=== PATIENT | male | born 1935 | race Caucasian/White ===

== ENCOUNTER 2021-12-21 14:27 | Emergency (ER) | payer MEDICARE ==
[2021-12-21] MEDS ORDERED: Diphtheria,Pertussis(Acell),Tetanus Vaccine 0.5 ML Syringe IM ONE (14:51)
[2021-12-21] MEDS ORDERED: ceFAZolin 1 GM Vial IM ONE (15:17)
== END 2021-12-21 15:40 | disposition home or self-care (01) ==
LOC: KA.ED 14:27
DX: S62.651B Nondisplaced fracture of middle phalanx of left index finger, initial encounter for open fracture (principal); S61.231A Puncture wound without foreign body of left index finger without damage to nail, initial encounter; Z79.82 Long term (current) use of aspirin; Z79.899 Other long term (current) drug therapy; Z23 Encounter for immunization; W26.8XXA Contact with other sharp object(s), not elsewhere classified, initial encounter
CPT/HCPCS: 73140-F1; 90471; 90715; 96372; 99283-25; J0690